=== PATIENT | female | born 1945 | race Caucasian/White ===

== ENCOUNTER 2017-05-27 13:38 | Emergency (ER) | payer OTHER ==
[2017-05-27 13:45] VITALS: TEMP 98.4; BMI 29.2
--- NOTE | 2017-05-27 14:20 | PDOC ---
History of Present Illness - General Chief Complaint: Edema Stated Complaint: DVT Time Seen by Provider: 05/27/17 14:08 - History of Present Illness Initial Comments: 05/27/17 14:20 72 yo F with h/o HTN arrives from outpatient office with finding of L Popliteal , L femoral DVT, and Right popliteal DVT on U/S. Patient reports stable intermittent left sided leg/calf pain of the past two years. + intermittent distal ext numbness/tingling. Pain worse with dorsiflexion of left foot for past year. Family reports elevating legs for past 6 months to relieve pain. No other complaints. Denies swelling ,SOB, palpitations, chest pain, wheezing, lightheadedness, N/V, fevers/chills. Patient denies h/o DVT/PE, h/o malignancy, recent surgery or trauma within past 6 months. Patient not on anticoagulation. Arrives from PCP Madeleine Ramsey 1 Past History - Past Medical History Allergies/Adverse Reactions: Allergies Allergy/AdvReac Type Severity Reaction Status Date / Time No Known Allergies Allergy Verified 05/27/17 13:42 Home Medications: Ambulatory Orders Losartan/Hydrochlorothiazide [Hyzaar 50-12.5 Tablet] 1 each PO DAILY 05/27/17 COPD: No Other medical history: denies - Suicide/Smoking/Psychosocial Hx Smoking History: Never smoked Have you smoked in the past 12 months: No Information on smoking cessation initiated: No Hx Alcohol Use: Yes Drug/Substance Use Hx: No Substance Use Type: Alcohol Review of Systems - Review of Systems Comments:: 05/27/17 15:36 GENERAL/CONSTITUTIONAL: No fever or chills. No weakness. HEAD, EYES, EARS, NOSE AND THROAT: No change in vision. No ear pain or discharge. No sore throat.- CARDIOVASCULAR: No chest pain or shortness of breath RESPIRATORY: No cough, wheezing, or hemoptysis. GASTROINTESTINAL: No nausea, vomiting, diarrhea or constipation. GENITOURINARY: No dysuria, frequency, or change in urination. MUSCULOSKELETAL: + Left leg pain. No joint or muscle swelling or pain. No neck or back pain. SKIN: No rash NEUROLOGIC: No headache, vertigo, loss of consciousness, or change in strength/ sensation. ENDOCRINE: No increased thirst. No abnormal weight change HEMATOLOGIC/LYMPHATIC: No anemia, easy bleeding, or history of blood clots. ALLERGIC/IMMUNOLOGIC: No hives or skin allergy. *Physical Exam - Vital Signs Last Vital Signs Temp Pulse Resp BP Pulse Ox 98.4 F 73 20 138/78 96 05/27/17 13:43 05/27/17 13:43 05/27/17 13:43 05/27/17 13:43 05/27/17 13:43 - Physical Exam Comments: 05/27/17 15:37 GENERAL: Awake, alert, and fully oriented, in no acute distress HEAD: No signs of trauma, normocephalic, atraumatic EYES: PERRLA, EOMI, sclera anicteric, conjunctiva clear ENT: Hearing grossly normal, nares patent, oropharynx clear without exudates. Moist mucosa NECK: Normal ROM, supple, no lymphadenopathy, JVD, or masses LUNGS: No distress, speaks full sentences, clear to auscultation bilaterally HEART: Regular rate and rhythm, normal S1 and S2, no murmurs, rubs or gallops, peripheral pulses normal and equal bilaterally. EXTREMITIES : Left lower extremity/BTK pain to palpation. + Left Devante Sign. + L sided popilteal fossa ttp. Legs of equal circumference BL. Non blanching, non erythematous, absent warmth. Palpable and symmetric peripheral pulses. + Superficial varicosities BL. Normal inspection, Normal range of motion, no edema. No clubbing or cyanosis. NEUROLOGICAL: Cranial nerves II through XII grossly intact. Normal speech, normal gait, no focal sensorimotor deficits SKIN: Warm, Dry, normal turgor, no rashes or lesions noted. ED Treatment Course - LABORATORY CBC & Chemistry Diagram: 05/27/17 16:20 05/27/17 16:20 Medical Decision Making - Medical Decision Making 05/27/17 15:42 72 yo F with h/o HTN arrives from outpatient office via EMS with finding of L Popliteal and L femoral DVT, and R popliteal DVT on U/S. Patient reports stable intermittent left sided leg/calf pain of the past two years. + intermittent distal ext numbness/tingling. Pain worse with dorsiflexion of left foot for past year. No other complaints. Denies swelling ,SOB, palpitations, chest pain, wheezing, lightheadedness, N/V, fevers/chills. Patient denies h/o DVT/PE, h/o malignancy, recent surgery or trauma within past 6 months. Patient not on anticoagulation. Arrives from PCP Madeleine Agrawal. Left lower extremity/BTK pain to palpation. Legs of equal circumference BL. Non blanching, non erythematous, absent warmth. Palpable and symmetric peripheral pulses. + Superficial varicosities BL. Pain reproducible with left foot dorsiflexion. Normal range of motion. No signs of phlegmasia. Absent hard/soft signs of arterial occlusion. Absent evidence of overlying cellulitis. ED Course: 05/27/17 15:42 Received verbal phone report from [employer] GU[employer] Addis Huff ( Dr. Madeleine Agrawal Attending). 05/27/17 17:38 INR: 1.16 CBC: Unremarkable CMP: Unremarkable 05/27/17 18:01 Duplex Vasc U/S BL 2 Legs: Neg. No evidence of DVT. Will f/u with Dr. Agrawal outpatient.[id number] Patient stable and advised to f/u as outpatient. 05/27/17 18:26 Spoke to Addis MAC and provided patient with copy of U/S report. Pt. to follow up with Dr. Madeleine Agrawal. *DC/Admit/Observation/Transfer Diagnosis at time of Disposition: Leg pain Qualifiers: Laterality: bilateral Qualified Code(s): M79.604 - Pain in right leg - Discharge Dispostion Disposition: HOME Condition at time of disposition: Stable Admit: No - Referrals Referrals: Madeleine Agrawal MD [Primary Care Provider] - - Patient Instructions Additional Instructions: Please return to the emergency department with any new or worsening symptoms or concerns. Please follow up with Dr. Agrawal/ESTEFANIA Mancini for repeat ultrasound within one week - call their office tomorrow to schedule the ultrasound. - Post Discharge Activity - Attestations Physician Attestion: 05/27/17 18:06 I attest to the documentation provided in this note.
--- NOTE | 2017-05-27 15:56 | PDOC ---
Attending Attestation - Resident Resident Name: Colton Odonnell - ED Attending Attestation I have performed the following: I have examined & evaluated the patient, The case was reviewed & discussed with the resident, I agree w/resident's findings & plan, Exceptions are as noted - HPI HPI: 05/27/17 15:52 72yo F hx HTN p/w outpt US revealing DVT. Pt has had longstanding calf pain and saw her primary care doctor today complaining of pain. Her son reports at that point an ultrasound was done that showed bilateral DVTs. The report states the pt's DVTs are in the b/l popliteal veins. Patient denies any recent worsening swelling or pain in her calves. She also denies fevers, chills, rashes, chest pain, shortness of breath, abdominal pain, nausea, vomiting, diarrhea, focal weakness or numbness. - Physicial Exam PE: 05/27/17 18:17 GENERAL: Awake, alert, and fully oriented, in no acute distress HEAD: No signs of trauma EYES: PERRLA, EOMI, sclera anicteric, conjunctiva clear ENT: Auricles normal inspection, hearing grossly normal, nares patent, oropharynx clear without exudates. Moist mucosa NECK: Normal ROM, supple, no lymphadenopathy, JVD, or masses LUNGS: Breath sounds equal, clear to auscultation bilaterally. No wheezes, and no crackles HEART: Regular rate and rhythm, normal S1 and S2, no murmurs, rubs or gallops ABDOMEN: Soft, nontender, normoactive bowel sounds. No guarding, no rebound. No masses EXTREMITIES: Normal range of motion, 1+ b/l symmetric non pitting edema. Devante' s sign negative. No clubbing or cyanosis. No cords, erythema, or tenderness NEUROLOGICAL: Normal speech, cranial nerves intact, negative pronator drift, 5/ 5 strength in all 4 extremities, normal sensation to light touch in all 4 extremities, normal cerebellar exam, normal gait, normal reflexes and tone SKIN: Warm, Dry, normal turgor, no rashes or lesions noted. - Medical Decision Making 05/27/17 18:18 72-year-old female presents with positive outpatient ultrasound for DVTs. Vitals are unremarkable. Patient denies any recent change in swelling or pain in her lower extremities which argues against DVT. Pt also has not had any recent travel or immobility. Discussed our findings with ESTEFANIA Mancini (Dr. Agrawal's DENTAL ASSISTANT TEACHER ) and we agreed to repeat the US next week. The latter was discussed with the patient and her son who expressed understanding. I discussed the physical exam findings, ancillary test results and final diagnoses with the patient. I answered all of the patient's questions. The patient was satisfied with the care received and felt comfortable with the discharge plan and treatment plan. The patient will call their primary care physician within 24 hours to arrange follow-up and will return to the Emergency Department with any new, persistent or worsening symptoms.
[2017-05-27 16:41] LABS: BASOPHIL 0.6 % (0-2.0); MCH 31.1 pg (25.7-33.7); MCHC 34.1 g/dl (32.0-36.0); MEAN CELL VOLUME 91.1 fl (80-96); MEAN PLT VOLUME 8.7 fl (7.5-11.1); NEUTROPHILS 59.6 % (42.8-82.8); PLATELET COUNT 233 K/MM3 (134-434); RDW 12.9 % (11.6-15.6); WHITE BLOOD COUNT 6.3 K/mm3 (4.0-10.0)
[2017-05-27 16:56] LABS: INR 1.16 (0.82-1.09); PROTHROMBIN TIME (PATIENT) 13.1 SEC (9.98-11.88)
[2017-05-27 16:59] LABS: ACTIVATED PTT 36.2 SECONDS (26.9-34.4)
[2017-05-27 17:06] LABS: ALK PHOS 86 U/L (45-117); ANION GAP 8 (8-16); BILIRUBIN,TOTAL 1.3 mg/dL (0.2-1.0); CALCIUM 9.3 mg/dL (8.5-10.1); CO2 28 mmol/L (21-32); CREATININE 0.6 mg/dL (0.55-1.02); GLUCOSE,RANDOM 97 mg/dL (74-106); SGOT/AST 16 U/L (15-37); SGPT/ALT 21 U/L (12-78); TOT PROT 7.8 g/dl (6.4-8.2)
[2017-05-27 19:06] VITALS: BP 135/80; PULSE 76
== END 2017-05-27 19:07 | disposition home or self-care (01) ==
LOC: JER 13:38
DX: M79.604 Pain in right leg (principal); M79.605 Pain in left leg
CPT/HCPCS: 36415; 80053; 85025; 85610; 85730; 93970-TC; 99284-25

== ENCOUNTER 2017-06-03 17:26 | Emergency (ER) | payer OTHER ==
[2017-06-03 17:41] VITALS: TEMP 98.3; BMI 31.8
--- NOTE | 2017-06-03 17:52 | PDOC ---
History of Present Illness <Gerardo Hunt - Last Filed: 06/03/17 17:50> - General History Source: Patient, Family Exam Limitations: No Limitations - History of Present Illness Initial Comments: 06/03/17 18:29 The patient is a 72 year old Persian speaking female, with no significant past medical history, who presents to the emergency department with, swelling bilaterally in her legs. She reports to be sent to her PCP a week ago who noted her legs to be swollen bilaterally, although no pain. Patient reports to feel no different and for her legs to look the same as they normally do. She was sent to [facility] for a venous doppler which was read entirely negative. She remains asymptomatic, no pain or swelling. She returned to her doctor today who did an ultrasound in her office which was read as having bilateral DVT. She was referred to the ER at [place] but preferred to come here. She takes only a vitamin and a baby aspirin daily. She denies recent fevers, chills, headache or dizziness. She denies recent nausea, vomit, diarrhea or constipation. She denies recent dysuria, frequency, urgency or hematuria. She denies recent chest pain or shortness of breath. Allergies: NKA Past surgical history: None reported. Family History: No family historyof coronary heart disease, diabetes, or other metabolic disease. No family history of DVT Social history: Nonsmoker. Denies EtOH use and recreational drug use. <Sanket Natarajan - Last Filed: 06/03/17 18:35> - General Chief Complaint: Edema Stated Complaint: SENT FROM PMD FOR MR VENOGRAM Time Seen by Provider: 06/03/17 17:50 Past History - Past Medical History COPD: No - Suicide/Smoking/Psychosocial Hx Smoking History: Never smoked Have you smoked in the past 12 months: No Information on smoking cessation initiated: No Hx Alcohol Use: Yes (SOCIAL) Drug/Substance Use Hx: No Substance Use Type: Alcohol <Gerardo Hunt - Last Filed: 06/03/17 17:50> <Sanket Natarajan - Last Filed: 06/03/17 18:35> - Past Medical History Allergies/Adverse Reactions: Allergies Allergy/AdvReac Type Severity Reaction Status Date / Time No Known Allergies Allergy Verified 06/03/17 17:28 Home Medications: Ambulatory Orders Aspirin [Aspirin EC] 81 mg PO DAILY 06/03/17 Review of Systems - Review of Systems Able to Perform ROS?: Yes Comments:: CONSTITUTIONAL: Absent: fever, no chills, no fatigue EYES: Absent: visual changes ENT: Absent: ear pain, no sore throat CARDIOVASCULAR: Absent: chest pain, no palpitations RESPIRATORY: Absent: cough, no SOB GI: Absent: abdominal pain, no nausea, no vomiting, no constipation, no diarrhea GENITOURINARY: Absent: dysuria, no frequency, no hematuria MUSKULOSKELETAL: Absent: No complaints of swelling or pain in her legs. No back pain, no arthralgia SKIN: Absent: rash NEURO: Absent: headache 06/03/17 18:33 All Other Systems: Reviewed and Negative <Sanket Natarajan - Last Filed: 06/03/17 18:35> *Physical Exam - Vital Signs Last Vital Signs Temp Pulse Resp BP Pulse Ox 98.3 F 86 20 132/80 98 06/03/17 17:27 06/03/17 17:27 06/03/17 17:27 06/03/17 17:27 06/03/17 17:27 <Gerardo Hunt - Last Filed: 06/03/17 17:50> - Vital Signs Last Vital Signs Temp Pulse Resp BP Pulse Ox 98.3 F 86 20 132/80 98 06/03/17 17:27 06/03/17 17:27 06/03/17 17:27 06/03/17 17:27 06/03/17 17:27 - Physical Exam Comments: 06/03/17 18:33 GENERAL: Cheerful and cooperative. Afebrile. Well developed, well nourished. Awake and alert. No acute distress. HEENT: Normocephalic, atraumatic. PERRLA, EOMI. No conjunctival pallor. Sclera are non- icteric. Moist mucous membranes. Oropharynx is clear. NECK: Supple. Full ROM. No JVD. Carotid pulses 2+ and symmetric, without bruits. No thyromegaly. No lymphadenopathy. CARDIOVASCULAR: Regular rate and rhythm. No murmurs, rubs, or gallops. Distal pulses are 2+ and symmetric. PULMONARY: No evidence of respiratory distress. Lungs clear to auscultation bilaterally. No wheezing, rales or rhonchi. ABDOMINAL: Soft. Non-tender. Non-distended. No rebound or guarding. No organomegaly. Normoactive bowel sounds. MUSCULOSKELETAL Normal range of motion at all joints. No bony deformities or tenderness. No CVA tenderness. EXTREMITIES: +Mild bilateral dependent edema of both legs symmetric, involving only ankles. No erythema or heat. No posterior calf swelling, tenderness, or cords Homens test negative. SKIN: Warm and dry. Normal capillary refill. No rashes. No jaundice. NEUROLOGICAL: Alert, awake, appropriate. Cranial nerves 2-12 intact. No deficits to light touch and temperature in face, upper extremities and lower extremities. No motor deficits in the in face, upper extremities and lower extremities. Normoreflexic in the upper and lower extremities. Normal speech. Toes are down- going bilaterally. Gait is normal without ataxia. PSYCHIATRIC: Cooperative. Good eye contact. Appropriate mood and affect. <Sanket Natarajan - Last Filed: 06/03/17 18:35> *DC/Admit/Observation/Transfer <Gerardo Hunt - Last Filed: 06/03/17 17:50> - Attestations Scribe Attestion: 06/03/17 18:35 Documentation prepared by Sanket Natarajan, acting as medical affairs director for Gerardo Maya MD. <Sanket Natarajan - Last Filed: 06/03/17 18:35> - Discharge Dispostion Condition at time of disposition: Stable
--- NOTE | 2017-06-03 19:55 | PDOC ---
*Physical Exam - Vital Signs Last Vital Signs Temp Pulse Resp BP Pulse Ox 98.3 F 86 20 132/80 98 06/03/17 17:27 06/03/17 17:27 06/03/17 17:27 06/03/17 17:27 06/03/17 17:27 Medical Decision Making - Medical Decision Making 06/03/17 21:00 Patient was awaiting us results which are negative for DVT. Will DC home to follow up with Dr. Lambert Tomorrow. *DC/Admit/Observation/Transfer Diagnosis at time of Disposition: Swelling of lower extremity - Discharge Dispostion Disposition: HOME Condition at time of disposition: Stable Admit: No - Referrals - Patient Instructions Printed Discharge Instructions: DI for Dependent Edema Additional Instructions: Mrs Lara, There is no blood clot seen with the Ultrasound. Follow up with Dr. Lambert tomorrow. Return to us if any problems. Best- Dr. Terry Rees - Post Discharge Activity - Attestations Physician Attestion: 06/03/17 19:55 I, Dr. Terry Rees, attest that this document has been prepared under my direction and personally reviewed by me in its entirety. I further attest, that it accurately reflects all work, treatment, procedures and medical decision -making performed by me.
[2017-06-03 21:04] VITALS: BP 136/77; PULSE 68
== END 2017-06-03 21:09 | disposition home or self-care (01) ==
LOC: FER 17:26
DX: M79.89 Other specified soft tissue disorders (principal)
CPT/HCPCS: 93970-TC; 99281-25